=== PATIENT | female | born 1995 | race African-American/Black ===

== ENCOUNTER 2016-10-16 21:23 | Emergency (ER) | payer BC ==
[~2016-10-16 21:23] MED LIST: PRENATAL1 TA1 PO
== END 2016-10-16 23:50 | disposition home or self-care (01) ==
LOC: SED 21:23
DX: S61.211A Laceration without foreign body of left index finger without damage to nail, initial encounter (principal); W26.0XXA Contact with knife, initial encounter; Y92.009 Unspecified place in unspecified non-institutional (private) residence as the place of occurrence of the external cause
CPT/HCPCS: 12001; 90471; 90715; 99283